=== PATIENT | male | born 2000 | race Native Hawaiian/Other Pacific Islander ===

== ENCOUNTER 2020-02-18 15:03 | Emergency (ER) | payer BC, OTHER ==
[~2020-02-18] VITALS: Ht 160 cm; Wt 43.1 kg
[2020-02-18 16:21] LABS: PLATELET COUNT 234 K/uL (142-355)
[2020-02-18 16:34] LABS: POTASSIUM 3.9 mmol/L (3.6-5.2)
[2020-02-18 17:46] VITALS: BP 118/76; TEMP 98
== END 2020-02-18 17:47 | disposition home or self-care (01) ==
LOC: ED 15:03
PROVIDERS: Hospitalist
DX: A08.39 Other viral enteritis (principal); R19.7 Diarrhea, unspecified; Z03.818 Encounter for observation for suspected exposure to other biological agents ruled out
CPT/HCPCS: 36415; 80053; 85027; 87502; 87635; 87651; 96360; 99283; 99284; U0003